=== PATIENT | female | born 1990 ===

== ENCOUNTER 2016-11-10 22:50 | Emergency (ER) | payer BC ==
[2016-11-10 22:50] VITALS: BMI 23.4
[2016-11-10 23:02] VITALS: BP 140/62; PULSE 74; RESP 16; TEMP 97.9; O2SAT 100
--- NOTE | 2016-11-10 23:54 | ED PDOC ---
HPI: General Adult Time Seen by Provider: 11/10/16 22:53 Chief Complaint (Nursing): Flu-like Symptoms Chief Complaint (Provider): Sore throat since 2 am History Per: Patient History/Exam Limitations: no limitations Onset/Duration Of Symptoms: Days Have you had recent travel within the past 21 days to any of the following countries: [place], [place], [place] or [place]?: No Current Symptoms Are (Timing): Still Present Additional Complaint(s): PT states she woke up with an extremely sore throat. PT denies fever/chills or cough. Past Medical History Vital Signs: Last Vital Signs Temp 97.9 F 11/10/16 22:59 Pulse 74 11/10/16 22:59 Resp 16 11/10/16 22:59 BP 140/62 11/10/16 22:59 Pulse Ox 100 11/10/16 22:59 - Medical History PMH: Denies: Fractures, Chronic Kidney Disease - Surgical History Surgical History: No Surg Hx - Family History Family History: States: No Known Family Hx - Home Medications Home Medications: Ambulatory Orders Medication Instructions Recorded Oxycodone HCl/Acetaminophen 1 tab PO DAILY PRN 11/25/15 [Oxycodone-Acetaminophen 5-325] Home Med 1 tab PO DAILY 12/02/15 - Allergies Allergies/Adverse Reactions: Allergies Allergy/AdvReac Type Severity Reaction Status Date / Time No Known Allergies Allergy Verified 11/10/16 22:59 Physical Exam - Reviewed Nursing Documentation Reviewed: Yes Vital Signs Reviewed: Yes - Physical Exam Appears: Positive for: Well, Non-toxic, No Acute Distress Head Exam: Positive for: ATRAUMATIC, NORMAL INSPECTION, NORMOCEPHALIC Skin: Positive for: Normal Color, Warm, DRY Eye Exam: Positive for: Normal appearance ENT: Positive for: Normal ENT Inspection. Negative for: Tonsillar Exudate, Tonsillar Swelling Neck: Positive for: Normal, Painless ROM Cardiovascular/Chest: Positive for: Regular Rate, Rhythm Respiratory: Positive for: CNT, Normal Breath Sounds Gastrointestinal/Abdominal: Positive for: Normal Exam, Bowel Sounds, Soft Back: Positive for: Normal Inspection Extremity: Positive for: Normal ROM Neurologic/Psych: Positive for: Alert, Oriented - ECG O2 Sat by Pulse Oximetry: 100 Medical Decision Making Medical Decision Making: Strep (-) Disposition - Clinical Impression Clinical Impression: Viral pharyngitis - Patient ED Disposition Is Patient to be Admitted: No - Disposition Referrals: Armin Ontiveros Jr., MD [Primary Care Provider] - Disposition: Routine/Home Disposition Time: 00:00 Condition: GOOD Instructions: Pharyngitis (ED)
== END 2016-11-11 00:05 | disposition home or self-care (01) ==
LOC: H.ER 22:50
DX: J02.9 Acute pharyngitis, unspecified (principal)

== ENCOUNTER 2017-03-23 20:43 | Emergency (ER) | payer BC ==
[2017-03-23 20:50] VITALS: BP 114/75; RESP 16; TEMP 96.9; O2SAT 98; BMI 22.6
--- NOTE | 2017-03-23 21:21 | ED PDOC ---
HPI: General Adult Time Seen by Provider: 03/23/17 20:56 Chief Complaint (Nursing): Chest Pain History Per: Patient Additional Complaint(s): Pt. states earlier this evening while she was driving she suddenly developed a "warmness" to her chest along with numbness to all her extremities. Symptoms lasted for at least a [address] as that was when she saw the exit sign. Symptoms slightly resolved but then returned but while en route to ED symptoms have improved. Currently without any symptoms. Also reports having palpitations. Has hx of anxiety but has never had these symptoms. Denies SI/HI, hallucinations, trauma, fever. Past Medical History Reviewed: Historical Data, Nursing Documentation, Vital Signs Vital Signs: Last Vital Signs Temp 96.9 F L 03/23/17 20:49 Pulse 73 03/23/17 21:22 Resp 16 03/23/17 20:49 BP 114/75 03/23/17 20:49 Pulse Ox 98 03/23/17 21:22 - Medical History PMH: Denies: Fractures, Chronic Kidney Disease - Family History Family History: States: No Known Family Hx - Home Medications Home Medications: Ambulatory Orders Medication Instructions Recorded Oxycodone HCl/Acetaminophen 1 tab PO DAILY PRN 11/25/15 [Oxycodone-Acetaminophen 5-325] Home Med 1 tab PO DAILY 12/02/15 - Allergies Allergies/Adverse Reactions: Allergies Allergy/AdvReac Type Severity Reaction Status Date / Time No Known Allergies Allergy Verified 11/10/16 22:59 Review of Systems ROS Statement: Except As Marked, All Systems Reviewed And Found Negative Cardiovascular: Positive for: Chest Pain, Palpitations Psych: Positive for: Anxiety Physical Exam - Reviewed Nursing Documentation Reviewed: Yes Vital Signs Reviewed: Yes - Physical Exam Appears: Positive for: Well, Non-toxic, No Acute Distress Head Exam: Positive for: ATRAUMATIC, NORMAL INSPECTION, NORMOCEPHALIC Skin: Positive for: Normal Color, Warm. Negative for: Rash Eye Exam: Positive for: EOMI, Normal appearance, PERRL ENT: Positive for: Normal ENT Inspection Neck: Positive for: Normal, Painless ROM Cardiovascular/Chest: Positive for: Regular Rate, Rhythm. Negative for: Tachycardia Respiratory: Positive for: CNT, Normal Breath Sounds Gastrointestinal/Abdominal: Positive for: Normal Exam, Bowel Sounds, Soft. Negative for: Tenderness Back: Positive for: Normal Inspection Extremity: Positive for: Normal ROM Neurologic/Psych: Positive for: Alert, Oriented - Laboratory Results Result Diagrams: 03/23/17 21:20 03/23/17 21:20 - ECG ECG: Positive for: Interpreted By Me ECG Rhythm: Positive for: Sinus Rhythm. Negative for: ST/T Changes Rate: 73 O2 Sat by Pulse Oximetry: 98 - Progress ED Course And Treament: Labs ordered. Re-evaluation Time: 22:30 Condition: Re-examined, Improved Disposition - Clinical Impression Clinical Impression: Anxiety - Patient ED Disposition Is Patient to be Admitted: No - Disposition Referrals: Alyson Copeland [Outside] Disposition: Routine/Home Disposition Time: 22:30 Condition: STABLE Instructions: Anxiety (ED) Forms: Alyson Rogers (Chinese), [facility] ED School/Work Excuse
[2017-03-23 21:28] VITALS: PULSE 73
[2017-03-23 21:32] LABS: BASO # 0.1 K/uL (0.0-0.2); BASO % 0.9 % (0.0-2.0); EOS % 0.3 % (0.0-4.0); HEMATOCRIT 39.6 % (34.0-47.0); LYMPH # 2.9 K/uL (1.0-4.3); LYMPH % 35.1 % (20.0-40.0); MEAN CELL VOLUME 96.7 fl (81.0-99.0); MEAN CORPUSCULAR HEMOGLOBIN 32.4 pg (27.0-31.0); MEAN CORPUSCULAR HGB CONC 33.5 g/dL (33.0-37.0); MEAN PLATELET VOLUME 7.4 fl (7.2-11.7); MONO # 0.5 K/uL (0.0-0.8); MONO % 5.8 % (0.0-10.0); NEUT # 4.7 K/uL (1.8-7.0); NEUT % 57.9 % (50.0-75.0); RED CELL DISTRIBUTION WIDTH 12.8 % (11.5-14.5); WHITE BLOOD COUNT 8.2 K/uL (4.8-10.8)
[2017-03-23 21:44] LABS: ALB/GLOB RATIO 1.5 (1.0-2.1); ALKALINE PHOSPHATASE 94 U/L (38-126); ALT/SGPT 47 U/L (9-52); AST/SGOT 28 U/L (14-36); BILIRUBIN,TOTAL 0.5 mg/dl (0.2-1.3); BLOOD UREA NITROGEN 6 mg/dl (7-17); CALCIUM 9.5 mg/dL (8.4-10.2); CARBON DIOXIDE 21 mmol/L (22-30); CHLORIDE 108 mmol/L (98-107); GFR AFRICAN-AMERICAN > 60; GLUCOSE,RANDOM 96 mg/dL (65-105); POTASSIUM 3.6 MMOL/L (3.6-5.0); SODIUM 141 mmol/l (132-148); TOTAL PROTEIN 7.7 G/DL (6.3-8.2)
[2017-03-23 22:14] LABS: THYROID STIMULATING HORMONE 1.03 mIU/ML (0.46-4.68)
--- NOTE | 2017-03-24 17:42 | CARD ---
APPROVED REPORT EKG Measurement Heart [id number] <Conclusion> Normal sinus rhythm Normal ECG
== END 2017-03-23 23:26 | disposition home or self-care (01) ==
LOC: H.ER 20:43
DX: R07.89 Other chest pain (principal); F41.9 Anxiety disorder, unspecified